=== PATIENT | male | born 1955 | race Caucasian/White ===

== ENCOUNTER 2021-01-12 11:04 | Emergency (ER) | payer OTHER ==
[~2021-01-12 11:04] MED LIST: AMARYL2 MG PO; AMOXICILLIN500 M2 PO; BENAZEPRIL HCL5 MG PO; CLOPIDOGREL75 MG PO; FLEXERIL10 MG PO; METFORMIN HCL500 M3 PO; METOPROLOL SUCC25 MG PO; MUCINEX600 MG PO; MUCUS RELIEF PO; OXYCODON-ACETA1 EAC1 PO; PANTOPRAZOLE SO40 MG PO; SIMVASTATIN20 MG PO; TOPIRAMATE50 MG PO; VOLTAREN **OUT50 MG PO
[2021-01-12] MEDS ORDERED: ROBAXIN500 MG PO (12:58)
== END 2021-01-12 13:09 | disposition home or self-care (01) ==
LOC: FER 11:04
DX: S30.1XXA Contusion of abdominal wall, initial encounter (principal); E04.9 Nontoxic goiter, unspecified; I10 Essential (primary) hypertension; E11.9 Type 2 diabetes mellitus without complications; Z79.02 Long term (current) use of antithrombotics/antiplatelets; V49.40XA Driver injured in collision with unspecified motor vehicles in traffic accident, initial encounter; Y92.410 Unspecified street and highway as the place of occurrence of the external cause
CPT/HCPCS: 70450; 71250; 72125; 72128; 72131